=== PATIENT | male | born 1950 | race African-American/Black ===

== ENCOUNTER 2017-05-29 18:50 | Inpatient (IN) | payer BC, MEDICARE ==
--- NOTE | 2017-05-29 19:27 | RAD ---
PORTABLE CHEST: Date: 05/29/17 HISTORY: Headache. FINDINGS: Heart size appears slightly enlarged. There are atherosclerotic changes of the aorta. The lungs are c lear of infiltrates. There is elevation of the right hemidiaphragm. IMPRESSION: No active intrathoracic disease. POS: [facility]
[2017-05-29 19:30] LABS: #Lymphocytes 1.4 thou/uL (1.20-3.40); #Monocytes 0.5 thou/uL (0.11-0.59); #Neutrophils 5.9 thou/uL (1.40-6.50); %Basophils 0.4 % (0.0-1.0); %Eosinophils 0.4 % (0.0-10.0); %Monocytes 6.8 % (0.0-10.0); %Neutrophils 74.4 % (42.0-75.0); Hemoglobin 15.1 g/dL (14.0-18.0); Mean Corpuscular HGB CONC 32.6 g/dL (32.0-36.0); Mean Corpuscular Hemoglobin 31.3 pg (27.0-31.0); Mean Corpuscular Volume 96.2 fl (80.0-94.0); Mean Platelet Volume 7.9 fL (7.4-10.4); Platelet Count 221 thou/uL (130-400); RBC Distribution Width 12.5 % (11.5-14.5); Red Blood Cell (RBC) Count 4.81 mill/uL (4.70-6.10); White Blood Cell (WBC) Count 7.9 thou/uL (4.8-10.8)
[2017-05-29 19:50] LABS: ALT (SGPT) 23 U/L (8-55); AST (SGOT) 21 U/L (5-34); Albumin 3.8 g/dL (3.4-4.8); Alkaline Phosphatase 65 U/L (40-150); Anion Gap 12 mmol/L (10-20); BUN (Urea Nitrogen) 8 mg/dL (8.4-25.7); Bilirubin, Total 0.6 mg/dL (0.2-1.2); CK (CPK) 65 U/L (30-200); Calc. Creatinine Clearance 0 mL/min (70-130); Calcium 9.6 mg/dL (7.8-10.44); Carbon Dioxide 35 mmol/L (23-31); Chloride 92 mmol/L (98-107); Estimated GFR-MDRD 85; Globulin 3.3 g/dL (2.4-3.5); Glucose 196 mg/dL (80-115); Potassium 3.3 mmol/L (3.5-5.1); Protein, Total 7.1 g/dL (5.8-8.1); Sodium 136 mmol/L (136-145)
[2017-05-29 19:53] LABS: CKMB 1.1 ng/mL (0-6.6)
[2017-05-29 20:23] LABS: INR-International Normal Ratio 1.1; PTT 29.7 SEC (22.9-36.1); Prothrombin Time 14.2 SEC (12.0-14.7)
--- NOTE | 2017-05-29 20:23 | CT ---
CT OF BRAIN PERFORMED WITHOUT CONTRAST ENHANCEMENT: Date: 05/29/17 HISTORY: Headache. FINDINGS: There is some mild ventricular and sulcal prominence. There is decreased attenuation of the periventr icular white matter, most consistent with some chronic white matter change. Changes slightly asymmetr ically involve the right periventricular white matter. There are no signs of intracerebral hemorrhage or extra-axial fluid collections. Mastoid air cells and visualized sinuses are clear. IMPRESSION: No acute intracranial abnormalities. POS: [facility]
[2017-05-29] MEDS ORDERED: cloNIDine 0.1 MG TAB ONE (20:53)
[2017-05-29] MEDS ORDERED: hydrALAZINE 20 MG/ML VIAL ONE (22:09)
[2017-05-29 22:46] LABS: Troponin I Less than 0.010 ng/mL (< 0.028)
[2017-05-29] MEDS ORDERED: Ondansetron PF 4 MG/2 ML Vial IVP PRN (22:52)
[2017-05-29] MEDS ORDERED: Ondansetron ODT 4 MG TAB SL PRN (22:52)
[2017-05-29] MEDS ORDERED: Acetaminophen 325 MG TAB PO PRN ×2 (22:52→23:40)
[2017-05-29] MEDS ORDERED: Enoxaparin Sodium 40 MG/0.4 ML SYRINGE SC SCH (23:40)
[2017-05-29] MEDS ORDERED: Ondansetron ODT 4 MG TAB PO PRN (23:40)
[2017-05-29] MEDS ORDERED: Donepezil HCl 10 MG TAB PO SCH (23:40)
[2017-05-29] MEDS ORDERED: Digoxin 0.5 MG/2 ML AMP SLOW IVP SCH (23:40)
[2017-05-29] MEDS ORDERED: Dextrose 5% in Water 1,000 ML IV PRN (23:40)
[2017-05-29] MEDS ORDERED: HYDROcodone/Acetaminophen 5/325 mg Tablet PO PRN (23:40)
[2017-05-29] MEDS ORDERED: Dextrose 50% Abboject 50 ML SYRINGE SLOW IVP PRN (23:40)
[2017-05-29] MEDS ORDERED: HYDROcodone/Acetaminophen 10/325 mg Tablet PO PRN (23:40)
[2017-05-29] MEDS ORDERED: Ziprasidone 20 MG CAP PO SCH (23:40)
--- NOTE | 2017-05-30 00:25 | HP ---
DATE OF ADMISSION: 05/29/2017 TIME OF SERVICE: 2315 hours. PRIMARY CARE PHYSICIAN: Kuldip Livingston M.D. CHIEF COMPLAINT: Headache. HISTORY OF PRESENT ILLNESS: Mr. Johnson is a 66-year-old [place] male with history of cerebrovascular disease status post CVA or TIA; some 22 years ago, they presented initially with a headache similar to today. He also has hypertension, diabetes, and chronic anemia. The patient was in normal state of health. He developed vertex headache today, lasting about 10 dong sahra and resolved spontaneously. Due to the concern out of him having a TIA or stroke, he was brought to the emergency department for evaluation. Workup here was unremarkable. He did have magnesium of 1.5. An EKG showed atrial fibrillation with a controlled ventricular response that was a new diagno sis. We were subsequently called for admission. He denies any chest pain or shortness of breath, nausea, vomiting, diarrhea, constipation, no cough o r sputum production. No fevers or chills. denies any history of previous atrial fibrillation, though he was at some time on Cardizem until about 3 years ago. In the emergency department, he got some clonidine orally, some IV hydralazine and 324 of aspirin. W e were called for admission. On arrival to the floor, he has been in atrial fibrillation with normal ventricular response. He has had no complaints. PAST MEDICAL HISTORY: 1. Cerebrovascular disease. 2. Hypertension. 3. Diabetes mellitus type 2. 4. Chronic anemia. 5. Dementia. PAST SURGICAL HISTORY: Includes an umbilical hernia repair in the past. HOME MEDICATIONS: 1. Enalapril 5 mg p.o. b.i.d. 2. Metformin 1000 mg p.o. b.i.d. 3. Clonidine 0.2 mg p.o. t.i.d. 4. Hydrochlorothiazide 50 mg p.o. daily. 5. KCl 20 mEq daily. 6. Metoprolol tartrate 100 mg p.o. b.i.d. 7. Aspirin 81 mg daily. 8. Namenda 5 mg p.o. at bedtime. 9. Donepezil 5 mg p.o. at bedtime. 10. Zoloft 100 mg p.o. q.a.m. 11. Ziprasidone 20 mg p.o. at bedtime. 12. Iron daily. 13. Trulicity 0.75 units subcutaneously every week on . 14. Tresiba 20 units about every other day. ALLERGIES: NKDA. FAMILY HISTORY: Negative for clotting or bleeding disorders. No immune dysfunction. No premature c oronary artery disease. SOCIAL HISTORY: Negative for habits x3. His is and monogamous. His accompanies daryl im. REVIEW OF SYSTEMS: A 10-point review of systems was performed, negative for all other systems except stated as per HPI. PHYSICAL EXAMINATION: VITAL SIGNS: He is afebrile. Temperature is 98.3, pulse 107, blood pressure 130/96, respiratory rat e 14, satting 99% on room air. GENERAL: He is awake. He is alert. He is oriented x3. He is a very relaxed, nontalkative - [place] male. He appears to be in no distress. HEENT: Normocephalic, atraumatic. His pupils are equal, round, reactive to light bilaterally, mucou s membranes are moist. No visible lesions. No thrush. NECK: Supple, without lymphadenopathy, JVD, or thyromegaly. He has normal carotid upstrokes without bruits. CHEST: Lungs are clear. He has good air movement. Symmetrical chest excursion. No wheezes, no ral es or rhonchi. CARDIOVASCULAR: He is irregularly irregular. He is borderline tachycardic. He has no audible murmu rs. ABDOMEN: Soft, nontender, nondistended. H has good bowel sounds in all four quadrants. There is no rebound, rigidity or guarding. EXTREMITIES: No cyanosis, no clubbing, no edema. He has 2+ peripheral pulses, dorsalis pedis and po sterior tibial arteries bilaterally. SKIN: Warm, moist, and well perfused. He has no rashes or lesions. MUSCULOSKELETAL: Exam is normal to inspection. No joint inflammation or palpable effusions. NEUROLOGIC: Cranial nerves II-XII grossly intact. He has 5/5 strength in all 4 extremities. He has normal speech pattern. There are no focal deficits. LABORATORY DATA: Sodium 136, potassium 3.3, chloride 92, bicarbonate 35, BUN 8, creatinine 1.06 and magnesium of 1.5. Calcium is 9.6. Glucose 196. LFTs completely within normal limits. CBC showed a white count of 7.9 with a normal differential, hemoglobin 15.1, hematocrit of 46.2, and platelet count is 221,000. CK-MB was normal at 1.1. Troponin I initially 0.010, repeat was less willem n 0.010 and his INR was 1.1. A chest x-ray showed no acute cardiopulmonary disease. ASSESSMENT AND PLAN: 1. New-onset atrial fibrillation. We will get serial cardiac biomarkers to make sure there has not been any cardiac ischemia. Watch him on telemetry. We will give him 0.25 mg IV digoxin now and agai n in the morning. We will ask Cardiology to evaluate. Questions for them will include anticoagulati on, and whether he would be a better candidate for amiodarone or Multaq or flecainide. 2. Diabetes mellitus type 2. The patient is Tresiba 20 units every other day and Trulicity. He is n ow due for Trulicity for another few days. His Tresiba is probably wearing off. He uses sliding sca le insulin with Humalog for correction, diabetic diet. We will hold his metformin for now. 3. Hypertension, on clonidine, enalapril/hydrochlorothiazide, and metoprolol tartrate. We will cont inue these at present. We will use p.r.n. hydralazine as needed to correct pressure. 4. Chronic anemia has resolved. Hemoglobin 15.1. 5. We will check morning, fasting lipid profile, hemoglobin A1c, last was 8, and will follow up with Cardiology recommendations.
[2017-05-30 00:38] LABS: CKMB 0.8 ng/mL (0-6.6); Troponin I 0.012 ng/mL (< 0.028)
[2017-05-30 01:24] VITALS: BMI 30.8
[2017-05-30] MEDS ORDERED: Magnesium 2 GM/NS 0.9% 100 ML 2 GM in Premix Bag 1 BAG IVPB SCH (02:00)
[2017-05-30 05:13] LABS: #Basophils 0.1 thou/uL (0.0-0.2); #Eosinphils 0.1 thou/uL (0.0-0.7); #Monocytes 0.6 thou/uL (0.11-0.59); #Neutrophils 4.3 thou/uL (1.40-6.50); %Basophils 0.7 % (0.0-1.0); %Eosinophils 0.8 % (0.0-10.0); %Lymphocytes 28.4 % (21.0-51.0); %Monocytes 8.8 % (0.0-10.0); %Neutrophils 61.3 % (42.0-75.0); Mean Corpuscular HGB CONC 33.2 g/dL (32.0-36.0); Mean Corpuscular Hemoglobin 31.6 pg (27.0-31.0); Mean Corpuscular Volume 95.3 fl (80.0-94.0); Mean Platelet Volume 7.7 fL (7.4-10.4); Platelet Count 202 thou/uL (130-400); RBC Distribution Width 12.4 % (11.5-14.5); Red Blood Cell (RBC) Count 4.44 mill/uL (4.70-6.10)
[2017-05-30 05:31] LABS: Hemoglobin A1c 7.1 % (4.0-6.0)
[2017-05-30 05:32] LABS: Anion Gap 10 mmol/L (10-20); BUN (Urea Nitrogen) 6 mg/dL (8.4-25.7); Calc. Creatinine Clearance 129 mL/min (70-130); Calcium 9.3 mg/dL (7.8-10.44); Carbon Dioxide 34 mmol/L (23-31); Cardiac Risk 3.6 (Less than 4.5); Chloride 95 mmol/L (98-107); Cholesterol 136 mg/dl (< 200 Desired); Estimated GFR-MDRD Greater than 90; Glucose 165 mg/dL (80-115); HDL Cholesterol 38 mg/dL (>60 Neg Risk); LDL Cholesterol, Calculated 84 mg/dL; Magnesium 1.6 mg/dL (1.6-2.6); Sodium 136 mmol/L (136-145); Triglycerides 68 mg/dL (Less than 150)
[2017-05-30 05:58] LABS: Potassium 2.5 mmol/L (3.5-5.1)
[2017-05-30 08:06] LABS: CKMB 0.7 ng/mL (0-6.6); Troponin I 0.023 ng/mL (< 0.028)
[2017-05-30] MEDS ORDERED: Aspirin 325 mg Enteric Coated Tablet PO SCH (09:00)
[2017-05-30] MEDS ORDERED: Digoxin 0.5 MG/2 ML AMP SLOW IVP SCH (09:00)
[2017-05-30] MEDS ORDERED: Enoxaparin Sodium 40 MG/0.4 ML SYRINGE SC SCH (09:00)
[2017-05-30] MEDS: Hydrochlorothiazide 25 MG TAB PO SCH (09:17)
[2017-05-30] MEDS: Famotidine 20 MG TAB PO SCH ×2 (09:18→20:36)
[2017-05-30] MEDS: Metoprolol Tartrate 100 MG TAB PO SCH ×2 (09:18→20:36)
[2017-05-30] MEDS: Potassium Chloride 20 MEQ TAB PO SCH ×3 (09:19→17:25)
[2017-05-30] MEDS: Donepezil HCl 5 MG TAB PO SCH (09:20)
[2017-05-30] MEDS: cloNIDine 0.2 MG TAB PO SCH ×3 (09:20→20:36)
--- NOTE | 2017-05-30 11:00 | PDOC.PN ---
- Subjective Encounter Start Date: 05/30/17 Encounter Start Time: 10:57 Subjective: nsg notes rev, fernando ovn, no new c/o, no chest pain, no palpitations, no SOB -: @ bedside. no recent diarrhea/ loose stools/ URI/ urinary changes - Objective Resuscitation Status: Resuscitation Status FULL:Full Resuscitation Vital Signs & Weight: Vital Signs (12 hours) Temp Pulse Resp BP BP Pulse Ox 05/30/17 09:18 126/89 05/30/17 09:16 79 05/30/17 07:30 96.5 F L 79 18 126/89 05/30/17 03:18 98.8 F 65 17 122/80 94 L 05/29/17 23:15 98.0 F 91 18 95 Weight Weight 221 lb Result Diagrams: 05/30/17 04:54 05/30/17 04:54 Additional Labs: Accuchecks 05/30/17 05:47 POC Glucose 174 H Phys Exam - Physical Examination Constitutional: NAD HEENT: PERRLA, moist MMs, sclera anicteric, oral pharynx no lesions Respiratory: no wheezing, no rales, no rhonchi, clear to auscultation bilateral Cardiovascular: RRR, no significant murmur, no rub Gastrointestinal: soft, non-tender, positive bowel sounds Musculoskeletal: no edema, pulses present Neurological: moves all 4 limbs Psychiatric: normal affect, A&O x 3 Skin: cap refill <2 seconds Dx/Plan - Plan * atrial fibrillation * appreciate cardiology c/s * new onset * TSH wnl * unclear why patient also has electrolyte abnormalities * currently ongoing dig load hypomag * s/p repletion, no obvious source of loss @ this time hypokalemia * s/p repletion, no obvious source of loss * ? renal loss? diet: as tolerated, cardiac activity: oob as yifan dvt ppx Review of Systems - Medications/Allergies Allergies/Adverse Reactions: Allergies Allergy/AdvReac Type Severity Reaction Status Date / Time No Allergy Information Allergy Verified 08/16/13 01:03 Available Medications: Current Medications Acetaminophen (Tylenol) 650 mg PO Q4H PRN PRN Reason: Headache/Fever or Pain Hydrocodone Bitart/Acetaminophen ([place] 10/325) 1 tab PO Q4H PRN PRN Reason: Severe Pain (7-10) Hydrocodone Bitart/Acetaminophen ([place] 5/325) 1 tab PO Q4H PRN PRN Reason: Moderate Pain (4-6) Clonidine (Catapres) 0.2 mg PO TID [facility] Last Admin: 05/30/17 09:20 Dose: 0.2 mg Dextrose/Water (Dextrose 50%) 25 gm SLOW IVP PRN PRN PRN Reason: Hypoglycemia Donepezil HCl (Aricept) 5 mg PO QAM [facility] Last Admin: 05/30/17 09:20 Dose: 5 mg Enalapril Maleate (Vasotec) 5 mg PO BID [facility] Last Admin: 05/30/17 09:18 Dose: 5 mg Enoxaparin Sodium (Lovenox) 40 mg SC 0900 [facility] Last Admin: 05/30/17 09:14 Dose: 40 mg Famotidine (Pepcid) 20 mg PO BID [facility] Last Admin: 05/30/17 09:18 Dose: 20 mg Glucagon (Glucagon) 1 mg IM PRN PRN PRN Reason: Hypoglycemia Hydrochlorothiazide (Hydrochlorothiazide) 50 mg PO DAILY [facility] Last Admin: 05/30/17 09:17 Dose: 50 mg Dextrose/Water (D5w) 1,000 mls @ 0 mls/hr IV .Q0M PRN; As Directed PRN Reason: Hypoglycemia Influenza Virus Vaccine (Fluzone Quad [id number] Syringe) 0.5 ml IM .ONCE ONE Stop: 05/31/17 09:01 Insulin Human Lispro (Humalog) 0 units SC .MILD SLIDING SCALE PRN PRN Reason: Mild Correctional Scale Memantine (Namenda) 5 mg PO QAM [facility] Last Admin: 05/30/17 09:19 Dose: 5 mg Metoprolol Tartrate (Lopressor) 100 mg PO BID [facility] Last Admin: 05/30/17 09:18 Dose: 100 mg Ondansetron HCl (Zofran Odt) 4 mg PO Q6H PRN PRN Reason: Nausea/Vomiting Potassium Chloride (K-Dur) 40 meq PO Q4HR [facility] Stop: 05/30/17 17:01 Last Admin: 05/30/17 09:19 Dose: 40 meq Ziprasidone (Geodon) 20 mg PO HS [facility] Last Admin: 05/30/17 00:25 Dose: 20 mg
[2017-05-30] MEDS: HumaLOG 300 UNITS/3 ML VIAL SC PRN ×2 (12:21→17:25)
--- NOTE | 2017-05-30 16:24 | CON ---
DATE OF CONSULTATION: 05/30/2017 REASON FOR CONSULTATION: Atrial fibrillation. a HISTORY OF PRESENT ILLNESS: Mr. Johnson is a very pleasant 66-year-old gentleman with a past history o f hypertension, diabetes mellitus, who recently presented with heavy feeling in his head. No chest p ain, pressure, neck, or jaw discomfort noted. He presented with atrial fibrillation with RVR. He is currently rate controlled. He continues to be in atrial fibrillation. He has no previous history. No previous history of underlying coronary artery disease. PAST MEDICAL HISTORY: CVA, hypertension, diabetes mellitus, mild dementia, chronic anemia. PAST SURGICAL HISTORY: Umbilical hernia repair. MEDICATIONS: Include clonidine, metformin, enalapril, hydrochlorothiazide, potassium, metoprolol, as pirin, Namenda, Zoloft, iron, Trulicity, and Tresiba. ALLERGIES: None. FAMILY HISTORY: Negative for CAD. SOCIAL HISTORY: No current tobacco or alcohol use. REVIEW OF SYSTEMS: Ten-point review of systems is reviewed and as above, otherwise negative. PHYSICAL EXAMINATION: GENERAL: Patient is a pleasant male who is in no acute distress. The patient appears his stated age . VITAL SIGNS: Blood pressure 132/91, pulse 64, temperature 96.1. NEUROLOGIC: The patient is alert and oriented times 3 with no focal neurologic deficits. HEENT: Sclerae without icterus. Mouth has moist mucous membranes with normal pallor. NECK: No JVD. Carotid upstroke brisk. No bruits bilaterally. LUNGS: Clear to auscultation with unlabored respirations. BACK: No scoliosis or kyphosis. CARDIAC: Irregularly irregular. ABDOMEN: Soft, nontender, nondistended. No peritoneal signs present. No hepatosplenomegaly. No ab normal striae. EXTREMITIES: 2+ femoral and 2+ dorsalis pedis pulses. No cyanosis, clubbing, or edema. SKIN: No gross abnormalities. PERTINENT LABORATORY DATA: Hemoglobin 14. Potassium 2.5, creatinine 0.82. IMPRESSION: Atrial fibrillation. RECOMMENDATIONS: Mr. Johnson is currently rate controlled. He is currently on metoprolol at 100 mg on e p.o. b.i.d. We would recommend normal oral anticoagulation therapy. We would recommend Eliquis at 5 mg one p.o. b.i.d. I have discussed the risks and benefits of anticoagulation therapy with Mr. Moss as well as his . They have opted for anticoagulation treatment. We would stop aspirin. We would recommend an echo with Doppler to assess LV function. If his LVEF is normal, would be okay fro m my standpoint to discharge home.
[2017-05-30 17:58] LABS: CKMB 0.7 ng/mL (0-6.6)
[2017-05-30] MEDS: Apixaban 5 MG TAB PO SCH (20:36)
[2017-05-30] MEDS ORDERED: Donepezil HCl 5 MG TAB PO SCH (21:00)
[2017-05-30] MEDS ORDERED: Ziprasidone 20 MG CAP PO SCH (21:00)
[2017-05-30] MEDS ORDERED: ALPRAZolam 0.25 MG TAB PO SCH (22:30)
[2017-05-31] MEDS: HumaLOG 300 UNITS/3 ML VIAL SC PRN (07:44)
[2017-05-31] MEDS: Hydrochlorothiazide 25 MG TAB PO SCH (07:45)
[2017-05-31] MEDS: Donepezil HCl 5 MG TAB PO SCH (07:46)
[2017-05-31] MEDS: cloNIDine 0.2 MG TAB PO SCH ×2 (07:46→14:20)
[2017-05-31] MEDS: Metoprolol Tartrate 100 MG TAB PO SCH (07:46)
[2017-05-31] MEDS: Apixaban 5 MG TAB PO SCH (07:46)
[2017-05-31] MEDS: Famotidine 20 MG TAB PO SCH (07:46)
[2017-05-31] MEDS ORDERED: FLU VACC QS2017-18 36 mo. & older 0.5 ML SYRINGE IM ONE (09:00)
[2017-05-31] MEDS ORDERED: hydrALAZINE 20 MG/ML VIAL SLOW IVP PRN (12:28)
[2017-05-31 13:32] VITALS: TEMP 98.2
[2017-05-31 14:27] VITALS: BP 166/104
[2017-05-31 15:15] LABS: Anion Gap 13 mmol/L (10-20); BUN (Urea Nitrogen) 12 mg/dL (8.4-25.7); Calc. Creatinine Clearance 99 mL/min (70-130); Carbon Dioxide 32 mmol/L (23-31); Chloride 95 mmol/L (98-107); Estimated GFR-MDRD 84; Glucose 223 mg/dL (80-115); Magnesium 1.4 mg/dL (1.6-2.6); Potassium 3.4 mmol/L (3.5-5.1); Sodium 137 mmol/L (136-145)
[2017-05-31] MEDS ORDERED: Potassium Chloride 20 MEQ TAB PO SCH (15:45)
[2017-05-31] MEDS ORDERED: Magnesium Oxide 400 MG TAB PO SCH (15:45)
[2017-05-31] MEDS ORDERED: ALPRAZolam 0.25 MG TAB PO SCH (21:00)
--- NOTE | 2017-06-01 13:30 | DIS ---
BUSINESS DEVELOPMENT REPRESENTATIVE: Dr. Mondragon. DISCHARGE DIAGNOSES: 1. New onset atrial fibrillation, currently rate controlled. 2. Type 2 diabetes. 3. Hypertension. BRIEF SUMMARY OF HOSPITAL COURSE: This is a 66-year-old male, who initially presented with a chief complaint of a headache in the setting of a prior CVA/ TIA. Please see the original history and physical for full details surrounding his admission. The patient was noted to be in atrial fibrillation and given a single dose of IV digoxin which was sufficient for initial obtainment of rate control. Cardiology was consulted and at the time of discharge he is continued on metoprolol 100 mg p.o. b.i.d. for rate control and Eliquis for anticoagulation; his outpatient aspirin had been stopped as well. The remainder of the patient's chronic medical issues are resolved at the time of discharge. His headache on presentation was ruled out for a new CVA. CONSULTATIONS: Cardiology. MEDICATION RECONCILIATION: Please see the EMR for full details. Continue his home regimen with the exception of aspirin being discontinued in favor of Eliquis 5 mg p.o. b.i.d. and addition of metoprolol 100 mg p.o. b.i.d. for rate control of his atrial fibrillation. PATIENT'S CONDITION AT DISCHARGE: At the time of discharge, the patient is hemodynamically stable, tolerating a baseline diet, and activity. DISCHARGE INSTRUCTION AND FOLLOWUP: The patient is asked to follow up carefully with his outpatient team to include his primary care provider and Cardiology on an outpatient basis. Thank you for asking me to care for the patient. Greater than 30 minutes were spent coordinating discharge for the patient. CHRISTIANO
--- NOTE | 2017-06-11 17:04 | EKG ---
Test Reason : Blood Pressure : / mmHG Vent. Rate : 083 BPM Atrial Rate : 096 BPM P-R Int : 000 ms QRS Dur : 098 ms QT Int : 390 ms P-R-T Axes : 000 -23 -03 degrees QTc Int : 458 ms Atrial fibrillation with premature ventricular or aberrantly conducted complexes Abnormal ECG Confirmed by ANNAD MICHAEL D.O. ([id number]), medical transcription editor BALAJI GARY ([id number]) on 06/11/2017 5:04:09 PM Referred By: Confirmed By:ANAND MICHAEL D.O.
== END 2017-05-31 18:59 | disposition home or self-care (01) | DRG 310 ==
LOC: ERS 18:50 → 2NO 22:49
PROVIDERS: ADMIT Internal Medicine Infectious Disease; ATTEND Internal Medicine Infectious Disease
DX: I48.91 Unspecified atrial fibrillation (principal); F03.90 Unspecified dementia, unspecified severity, without behavioral disturbance, psychotic disturbance, mood disturbance, and anxiety; E83.42 Hypomagnesemia; E87.6 Hypokalemia; E11.9 Type 2 diabetes mellitus without complications; D64.9 Anemia, unspecified; I10 Essential (primary) hypertension; Z86.73 Personal history of transient ischemic attack (TIA), and cerebral infarction without residual deficits
CPT/HCPCS: 36415; 36416; 70450; 71045; 80048; 80053; 80061; 82550; 82553; 83036; 83735; 84443; 84484; 85025; 85610; 85730; 93005; 93306; 96374; J0360; J1160; J1650; J3475

== ENCOUNTER 2021-03-27 19:00 | Observation (INO) | payer MEDICARE, OTHER ==
[2021-03-27 19:58] LABS: #Eosinphils 0.3 thou/uL (0.0-0.7); #Lymphocytes 1.2 thou/uL (1.20-3.40); #Monocytes 0.4 thou/uL (0.11-0.59); #Neutrophils 3.3 thou/uL (1.40-6.50); %Basophils 0.3 % (0.0-1.0); %Eosinophils 6.3 % (0.0-10.0); %Lymphocytes 22.8 % (21.0-51.0); %Monocytes 6.9 % (0.0-10.0); %Neutrophils 63.7 % (42.0-75.0); Hemoglobin 13.4 g/dL (14.0-18.0); Mean Corpuscular HGB CONC 32.9 g/dL (32.0-36.0); Mean Corpuscular Hemoglobin 31.6 pg (27.0-31.0); Mean Platelet Volume 8.2 fL (7.4-10.4); Platelet Count 161 thou/uL (130-400); RBC Distribution Width 12.9 % (11.5-14.5); Red Blood Cell (RBC) Count 4.25 mill/uL (4.70-6.10); White Blood Cell (WBC) Count 5.1 thou/uL (4.8-10.8)
[2021-03-27 20:20] LABS: ALT (SGPT) 22 U/L (8-55); AST (SGOT) 30 U/L (5-34); Albumin 3.4 g/dL (3.4-4.8); Alkaline Phosphatase 64 U/L (40-110); Anion Gap 14 mmol/L (10-20); BUN (Urea Nitrogen) 18 mg/dL (8.4-25.7); Bilirubin, Total 0.4 mg/dL (0.2-1.2); Calc. Creatinine Clearance 0 mL/min (70-130); Calcium 9.4 mg/dL (7.8-10.44); Carbon Dioxide 31 mmol/L (23-31); Chloride 97 mmol/L (98-107); Globulin 3.6 g/dL (2.4-3.5); Glucose 248 mg/dL (80-115); Potassium 3.6 mmol/L (3.5-5.1); Sodium 138 mmol/L (136-145)
[2021-03-27 20:27] LABS: Acetaminophen Less than 6.0 mcg/mL (10.0-30.0); Alcohol Less than 10 mg/dL (Less than 10); Salicylate Less than 8.0 mg/dL (15.0-30.0)
[2021-03-27] MEDS ORDERED: Cefepime 2 GM VIAL ONE (21:18)
[2021-03-27 23:18] LABS: Bacteria/HPF None Seen HPF (None Seen); Bilirubin Negative (Negative); Blood, Urine Trace (Negative); Clarity Clear (Clear); Glucose, Urine (Dipstick) Normal (Negative); Ketone, Urine Negative (Negative); Leukocyte Negative Leu/uL (Negative); Mucous/LPF Rare LPF (<2+); Nitrite Negative (Negative); Protein, Urine (Dipstick) 100 mg/dL (Neg-Trace); RBC/HPF 0-3 HPF (0-3); Specific Gravity, Urine 1.017 (1.002-1.036); Squamous Epithelial None Seen HPF (0-3); Urobilinogen Normal mg/dL (Less than 2); WBC/HPF 0-3 HPF (0-3); pH, Urine 5.5 (5.0-9.0)
[2021-03-27 23:24] LABS: Amphetamine Not Detected (NotDetected); Barbiturates Screen Not Detected (NotDetected); Benzodiazepine Screen Not Detected (NotDetected); Cocaine Metabolite Screen Not Detected (NotDetected); Methadone Not Detected (NotDetected); Methamphetamine Not Detected (NotDetected); Opiate Screen Not Detected (NotDetected); Oxycodone Screen Not Detected (NotDetected); Phencyclidine (PCP) Not Detected (NotDetected); THC/Cannabinoid Screen Not Detected (NotDetected); Tricyclic Screen Not Detected (NotDetected)
[2021-03-27 23:36] LABS: Lactic Acid 3.6 mmol/L (0.5-2.2)
[2021-03-28] MEDS ORDERED: Ondansetron ODT 4 MG TAB SL PRN (00:45)
[2021-03-28] MEDS ORDERED: Ondansetron PF 4 MG/2 ML Vial IVP PRN (00:45)
[2021-03-28] MEDS ORDERED: Acetaminophen 325 MG TAB PO PRN (00:45)
[2021-03-28 00:49] VITALS: BMI 26.7
[2021-03-28 01:05] LABS: Lactic Acid 2.1 mmol/L (0.5-2.2)
[2021-03-28] MEDS ORDERED: Sodium Chloride 0.9% 1,000 ML IV SCH (07:00)
[2021-03-28] MEDS ORDERED: Dextrose 5% in Water 1,000 ML IV PRN (07:02)
[2021-03-28] MEDS ORDERED: Dextrose 50% Abboject 50 ML SYRINGE SLOW IVP PRN (07:02)
[2021-03-28] MEDS ORDERED: HumaLOG 300 UNITS/3 ML VIAL SC PRN ×2 (07:02)
[2021-03-28 07:25] LABS: #Basophils 0.1 thou/uL (0.0-0.2); #Eosinphils 0.3 thou/uL (0.0-0.7); #Lymphocytes 1.4 thou/uL (1.20-3.40); #Monocytes 0.4 thou/uL (0.11-0.59); #Neutrophils 2.9 thou/uL (1.40-6.50); %Basophils 1.2 % (0.0-1.0); %Eosinophils 6.3 % (0.0-10.0); %Monocytes 8.5 % (0.0-10.0); Hemoglobin 13.4 g/dL (14.0-18.0); Mean Corpuscular HGB CONC 33.3 g/dL (32.0-36.0); Mean Corpuscular Volume 96.1 fL (78.0-98.0); Mean Platelet Volume 7.9 fL (7.4-10.4); Platelet Count 166 thou/uL (130-400); RBC Distribution Width 12.8 % (11.5-14.5)
[2021-03-28] MEDS ORDERED: hydrALAZINE 20 MG/ML VIAL SLOW IVP PRN (07:33)
[2021-03-28 07:39] LABS: Anion Gap 11 mmol/L (10-20); BUN (Urea Nitrogen) 14 mg/dL (8.4-25.7); Calc. Creatinine Clearance 108 mL/min (70-130); Calcium 9.2 mg/dL (7.8-10.44); Carbon Dioxide 32 mmol/L (23-31); Chloride 99 mmol/L (98-107); Glucose 137 mg/dL (80-115); Sodium 139 mmol/L (136-145)
[2021-03-28] MEDS ORDERED: Electrolyte Replacement Protocol FS PRN (14:15)
[2021-03-28] MEDS ORDERED: Electrolyte Replacement Protocol 1 EACH FS SCH (14:15)
[2021-03-28] MEDS ORDERED: Potassium Chloride 20 MEQ TAB PO SCH (14:15)
[2021-03-28] MEDS: cloNIDine 0.2 MG TAB PO SCH ×2 (14:47→20:39)
[2021-03-28] MEDS: Carbidopa/Levodopa 25-100 mg Tablet PO SCH ×3 (14:48→20:39)
[2021-03-28 18:17] LABS: SARS-CoV-2 PCR by NAA Not Detected (NotDetected)
[2021-03-28] MEDS: Apixaban 5 MG TAB PO SCH (20:39)
[2021-03-28] MEDS: Metoprolol Tartrate 100 MG TAB PO SCH (20:39)
[2021-03-28] MEDS: Lisinopril 5 MG TAB PO SCH (20:39)
[2021-03-29 05:03] LABS: #Basophils 0.1 thou/uL (0.0-0.2); #Eosinphils 0.3 thou/uL (0.0-0.7); #Lymphocytes 1.5 thou/uL (1.20-3.40); #Monocytes 0.5 thou/uL (0.11-0.59); #Neutrophils 3.4 thou/uL (1.40-6.50); %Basophils 1.2 % (0.0-1.0); %Eosinophils 6.1 % (0.0-10.0); %Lymphocytes 25.5 % (21.0-51.0); %Monocytes 8.5 % (0.0-10.0); %Neutrophils 58.7 % (42.0-75.0); Hemoglobin 13.8 g/dL (14.0-18.0); Mean Corpuscular Hemoglobin 31.7 pg (27.0-31.0); Mean Corpuscular Volume 96.2 fL (78.0-98.0); Mean Platelet Volume 8.2 fL (7.4-10.4); Platelet Count 147 thou/uL (130-400); RBC Distribution Width 12.7 % (11.5-14.5); Red Blood Cell (RBC) Count 4.34 mill/uL (4.70-6.10); White Blood Cell (WBC) Count 5.7 thou/uL (4.8-10.8)
[2021-03-29 05:23] LABS: Anion Gap 11 mmol/L (10-20); BUN (Urea Nitrogen) 10 mg/dL (8.4-25.7); Calc. Creatinine Clearance 104 mL/min (70-130); Calcium 9.2 mg/dL (7.8-10.44); Carbon Dioxide 32 mmol/L (23-31); Chloride 98 mmol/L (98-107); Glucose 147 mg/dL (80-115); Magnesium 1.3 mg/dL (1.6-2.6); Sodium 138 mmol/L (136-145)
[2021-03-29 05:25] LABS: Potassium 2.9 mmol/L (3.5-5.1)
[2021-03-29] MEDS: Potassium Chloride 20 MEQ TAB PO SCH ×2 (05:54→10:04)
[2021-03-29] MEDS ORDERED: Magnesium Sulfate 4 GM in Sodium Chloride 0.9% 250 ML 250 ML IVPB SCH (06:30)
[2021-03-29] MEDS ORDERED: DULAGLUTIDE 0.75 MG/0.5 ML SC SCH (09:00)
[2021-03-29] MEDS ORDERED: Donepezil HCl 10 MG TAB PO SCH (09:00)
[2021-03-29] MEDS: cloNIDine 0.2 MG TAB PO SCH ×2 (10:04→14:56)
[2021-03-29] MEDS: Metoprolol Tartrate 100 MG TAB PO SCH (10:05)
[2021-03-29] MEDS: Apixaban 5 MG TAB PO SCH (10:05)
[2021-03-29] MEDS: Lisinopril 5 MG TAB PO SCH (10:05)
[2021-03-29] MEDS: Carbidopa/Levodopa 25-100 mg Tablet PO SCH ×2 (10:05→12:57)
[2021-03-29 13:19] VITALS: TEMP 97.9
[2021-03-29 13:27] LABS: Anion Gap 14 mmol/L (10-20); BUN (Urea Nitrogen) 11 mg/dL (8.4-25.7); Calc. Creatinine Clearance 96 mL/min (70-130); Calcium 9.5 mg/dL (7.8-10.44); Carbon Dioxide 28 mmol/L (23-31); Chloride 99 mmol/L (98-107); Glucose 227 mg/dL (80-115); Magnesium 1.9 mg/dL (1.6-2.6); Potassium 3.5 mmol/L (3.5-5.1); Sodium 137 mmol/L (136-145)
[2021-03-29 17:08] VITALS: BP 100/68
== END 2021-03-29 16:30 | disposition home or self-care (01) ==
LOC: ERS 19:00 → 2NO 22:22
PROVIDERS: ADMIT Student in an Organized Health Care Education/Training Program; ATTEND Internal Medicine
DX: T42.4X1A Poisoning by benzodiazepines, accidental (unintentional), initial encounter (principal); R40.0 Somnolence; I95.9 Hypotension, unspecified; E11.10 Type 2 diabetes mellitus with ketoacidosis without coma; E87.6 Hypokalemia; E83.42 Hypomagnesemia; G20 Parkinson's disease; F02.80 Dementia in other diseases classified elsewhere, unspecified severity, without behavioral disturbance, psychotic disturbance, mood disturbance, and anxiety; I10 Essential (primary) hypertension; G93.40 Encephalopathy, unspecified; Z86.73 Personal history of transient ischemic attack (TIA), and cerebral infarction without residual deficits; Z79.01 Long term (current) use of anticoagulants; Z79.4 Long term (current) use of insulin; Z79.84 Long term (current) use of oral hypoglycemic drugs; Z79.899 Other long term (current) drug therapy; Z20.822 Contact with and (suspected) exposure to COVID-19
CPT/HCPCS: 70450; 80048 ×3; 80306; 80307; 82962 ×2; 83605 ×2; 83735; 85025 ×2; 87040; 87086; 93005; 96365; 96375; 97116 ×2; 97139 ×2; 97530; 99285; G0378 ×3; U0003; U0005; 36415; 36416; 80053; 81003; 81015; 84443; J0360; J0692; J3475; J7050

== ENCOUNTER 2021-10-17 12:57 | Emergency (ER) | payer MEDICARE ==
[2021-10-17] MEDS ORDERED: Dextrose 50% Abboject 50 ML SYRINGE ONE ×2 (13:18→13:19)
[2021-10-17 13:53] LABS: #Basophils 0.1 thou/uL (0.0-0.2); #Eosinphils 0.1 thou/uL (0.0-0.7); #Monocytes 0.5 thou/uL (0.11-0.59); #Neutrophils 5.1 thou/uL (1.40-6.50); %Basophils 1.2 % (0.0-1.0); %Eosinophils 1.7 % (0.0-10.0); %Lymphocytes 25.6 % (21.0-51.0); %Monocytes 6.7 % (0.0-10.0); %Neutrophils 64.9 % (42.0-75.0); Hemoglobin 15.8 g/dL (14.0-18.0); Mean Corpuscular HGB CONC 32.5 g/dL (32.0-36.0); Mean Corpuscular Volume 98.3 fL (78.0-98.0); Mean Platelet Volume 8.8 fL (7.4-10.4); Platelet Count 125 thou/uL (130-400); RBC Distribution Width 13.4 % (11.5-14.5); Red Blood Cell (RBC) Count 4.93 mill/uL (4.70-6.10); White Blood Cell (WBC) Count 7.9 thou/uL (4.8-10.8)
[2021-10-17 14:14] LABS: Bilirubin Negative (Negative); Blood, Urine Negative (Negative); Clarity Clear (Clear); Glucose, Urine (Dipstick) 200 mg/dL (Negative); Ketone, Urine Negative (Negative); Leukocyte Negative Leu/uL (Negative); Nitrite Negative (Negative); Protein, Urine (Dipstick) Negative (Neg-Trace); Specific Gravity, Urine 1.006 (1.002-1.036); Urobilinogen Normal mg/dL (Less than 2)
[2021-10-17 15:31] LABS: ALT (SGPT) 7 U/L (8-55); AST (SGOT) 25 U/L (5-34); Albumin 3.7 g/dL (3.4-4.8); Alkaline Phosphatase 88 U/L (40-110); Anion Gap 19 mmol/L (10-20); BUN (Urea Nitrogen) 12 mg/dL (8.4-25.7); Calc. Creatinine Clearance 0 mL/min (70-130); Calcium 9.3 mg/dL (7.8-10.44); Carbon Dioxide 23 mmol/L (23-31); Chloride 100 mmol/L (98-107); Estimated GFR 81; Globulin 3.7 g/dL (2.4-3.5); Glucose 170 mg/dL (80-115); Potassium 3.8 mmol/L (3.5-5.1); Protein, Total 7.4 g/dL (5.8-8.1); Sodium 138 mmol/L (136-145)
== END 2021-10-17 15:05 | disposition home or self-care (01) ==
LOC: ERS 12:57
DX: E11.649 Type 2 diabetes mellitus with hypoglycemia without coma (principal); I10 Essential (primary) hypertension; Z79.84 Long term (current) use of oral hypoglycemic drugs; Z79.899 Other long term (current) drug therapy
CPT/HCPCS: 36415; 36416; 80053; 81003; 85025; 93005; 96374; J7999

== ENCOUNTER → 2022-07-15 | Outpatient (CLI) | payer MEDICARE | LOC: PET 11:45 | PROVIDERS: ATTEND Psychiatry & Neurology Neurology | DX: G20 Parkinson's disease (principal) | CPT/HCPCS: 78803; A9552 ==